=== PATIENT | male | born 1945 | race Caucasian/White ===

== ENCOUNTER 2020-10-25 14:59 | Inpatient (IN) | payer MEDICARE, BC ==
[~2020-10-25] VITALS: Ht 198.1 cm; Wt 112.0 kg
--- NOTE | 2020-10-25 15:09 | NUR ---
[email or web address], from home, c/o left hip pain s/p tripped and fall, external rotation and shortening, fentanyl 100mcg given on scene, 2/10 pain scale, to ER bed 11, hooked to monitor, changed to hosp gown, warm blanket provided. patiangel luis noted w IVP 20g, patent. awaiting MD mcdonald
--- NOTE | 2020-10-25 15:14 | NUR ---
Dr Young at bedside
[2020-10-25 16:05] LABS: BASOPHILS % (AUTO) 0.1 % (0.0-2.0); EOSINOPHILS % (AUTO) 0.7 % (0.0-6.0); HEMATOCRIT 40 % (39-51); HEMOGLOBIN 13.6 g/dL (13.5-17.5); LYMPHOCYTES # (AUTO) 0.9 /CMM (0.8-4.8); LYMPHOCYTES % (AUTO) 11.7 % (20.0-44.0); MEAN CORPUSCULAR HGB CONC 34 g/dl (31.0-36.0); MEAN CORPUSCULAR VOLUME 91 fL (80-96); MONOCYTES # (AUTO) 0.5 /CMM (0.1-1.30); MONOCYTES % (AUTO) 5.8 % (2.0-12.0); NEUTROPHILS # (AUTO) 6.5 /CMM (1.8-8.9); NEUTROPHILS % (AUTO) 81.7 % (43.0-81.0); PLATELET COUNT (AUTO) 157 /CMM (150-450); RED BLOOD CELL COUNT(AUTO) 4.44 MIL/uL (4.5-6.0); WHITE BLOOD COUNT (AUTO) 7.9 K/uL (4.3-11.0)
[2020-10-25 16:18] LABS: CALCIUM, SERUM 8.8 mg/dL (8.5-10.1)
[2020-10-25] MEDS ORDERED: IV NS 0.9% 500 ML BAG IV ONE (17:00)
[2020-10-25] MEDS ORDERED: FENTANYL PF 100MCG/2ML AMPUL ONE (17:22)
[2020-10-25] MEDS ORDERED: FENTANYL PF 100MCG/2ML AMPUL IV ONE (17:30)
--- NOTE | 2020-10-25 17:43 | NUR ---
PICKED UP BY PEN TENDER FOR CT SCAN
--- NOTE | 2020-10-25 18:14 | NUR ---
BACK FROM CT SCAN
[2020-10-25] MEDS ORDERED: LEVO175T7 PO (18:30)
[2020-10-25] MEDS ORDERED: TADA5TAB2 PO (18:30)
[2020-10-25] MEDS ORDERED: ATOR10TA PO (18:30)
[2020-10-25] MEDS ORDERED: TAMS-12 PO (18:30)
[2020-10-25] MEDS ORDERED: NAPR220C15 PO (18:30)
[2020-10-25] MEDS ORDERED: OMEP20CA15 PO (18:30)
[2020-10-25] MEDS ORDERED: ASPI-1169 PO (18:30)
[2020-10-25] MEDS ORDERED: MAGN400T26 PO (18:31)
[2020-10-25] MEDS ORDERED: CALC500T52 PO (18:31)
--- NOTE | 2020-10-25 18:52 | NUR ---
CALLED NURSING SUP FOR M/S BED.
--- NOTE | 2020-10-25 19:23 | NUR ---
SARAID SWABBED, SENT TO LAB.
[2020-10-25] MEDS ORDERED: MAGNESIUM HYDROXIDE 30 ML UDC PO PRN (19:30)
[2020-10-25] MEDS ORDERED: ACETAMINOPHEN 325 MG TABLET PO PRN (19:30)
[2020-10-25] MEDS ORDERED: diphenhydrAMINE HCL 50 MG/ML VIAL IV PRN (19:30)
[2020-10-25] MEDS ORDERED: ONDANSETRON HCL/PF 4 MG/2 ML VIAL IVP PRN (19:30)
[2020-10-25] MEDS ORDERED: Z GUARD REMEDY 2 OZ OINT TP PRN (19:30)
[2020-10-25] MEDS ORDERED: MAG HYDROX/AL HYDROX/SIMETH 30 ML UDC PO PRN (19:30)
--- NOTE | 2020-10-25 19:53 | NUR ---
REPORT GIVEN TO HELEN HILL FOR PHILIPPE
--- NOTE | 2020-10-25 20:17 | NUR ---
LAB CALLED REGARDING POSITIVE COVID RESULT.
[2020-10-25] MEDS ORDERED: TAMSULOSIN 0.4 MG CAP.SR.24H PO SCH (22:00)
--- NOTE | 2020-10-25 23:47 | NUR ---
PT RESTING COMFORTABLY. VSS.
--- NOTE | 2020-10-26 00:31 | NUR ---
REPORT GIVEN TO BENITA FOR PHILIPPE
[2020-10-26 01:00] VITALS: BP_SYST 154; BP_DIAS 80; BP_DIAS 84
[2020-10-26] MEDS: HYDROMORPHONE INJ 2 MG/ML DISP.SYRIN IV PRN ×5 (01:07→22:21)
--- NOTE | 2020-10-26 01:25 | NUR ---
MS/RN ADMITTING NOTES: RECEIVED REPORT FROM SERGIO MARTINEZ FROM ER. PT ARRIVED TO UNIT AT 0100, IN STABLE CONDITION, VIA GURNEY. ON ROOM AIR, TOLERATING WELL. NO SOB NOTED. BREATHING EVEN AND UNLABORED. NO S/S OF DISTRESS. COMPLAINS OF PAIN 10 OUT OF 10. REQUESTING FOR PAIN MED BEFORE GETTING TRANSFERRED TO THE BED. PT STATED HE IS ALLERGIC TO MORPHINE AND HAS REACTION OF REDNESS AND ITCHING. PER PT "I THINK I'VE GOTTEN DILAUDID BEFORE IN THE PAST." CALLED [facility] TO CLARIFY IF IT'S OKAY TO ADMINISTER DILAUDID IV ORDERED. PER ERINN (PHARMACIST) "OKAY TO GIVE. JUST MONITOR PT." ADMINISTERED DILAUDID 2MG IVP Q4H PRN AT 0107 ORDERED FOR PAIN. VSS AND WNL. WILL ASSESS FOR REACTIONS AND PAIN. AT 0122, PT ALLOWED TO BE TRANSFERRED ON THE BED. CAN TOLERATE PAIN. NO REACTIONS FROM THE DILAUDID. VSS AND WNL. PT IS A/OX4. VERBALLY RESPONSIVE AND ABLE TO MAKE NEEDS KNOWN. ORIENTED TO UNIT AND STAFF. BELONGINGS LIST CHECKED. SAFETY MEASURES INITIATED. BED IN LOW, LOCKED POSITION WITH SR UPX2. PT HAS NO VISIBLE WOUNDS. WOULD NOT ALLOW US TO MOVE HIM BECAUSE OF HIS HIP FRACTURE. REFUSES TO CHANGE GOWN. REFUSES SKIN ASSESSMENT D/T PAIN. INFORMED ABOUT HOSPITAL PROTOCOL, AND EDUCATED, STILL REFUSED X3. CALL LIGHT WITHIN REACH, NO OTHER ISSUES AND CONCERNS AT THIS TIME.
--- NOTE | 2020-10-26 01:30 | NUR ---
MS/RN NOTES: PT IS COOPERATIVE AND CALM WHEN ASKED QS ON THE ADMISSION, BUT STILL REFUSES TO BE CHANGED. URINAL AT BED SIDE. PER PT "I DON'T WANT TO BE BOTHERED". WILL MANAGED PAIN NEEDED. NO ISSUES AND CONCERN NOTED AT THIS TIME.
[2020-10-26] MEDS: TAMSULOSIN 0.4 MG CAP.SR.24H PO SCH ×2 (01:53→21:14)
[2020-10-26 05:40] VITALS: BP 142/78
--- NOTE | 2020-10-26 06:00 | NUR ---
MS/RN NOTES: PT REQUESTED FOR PAIN MED. PAIN RATING IS 9/10. ADMINISTERED DILAUDID 2MG IV IVP ORDERED. VSS AND WNL. NO CONCERNS OR ISSUES AT THIS TIME.
--- NOTE | 2020-10-26 06:15 | NUR ---
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 SOLAR TECHNICIAN INFORMED. DR. ENGLISH MADE AWARE.
--- NOTE | 2020-10-26 07:13 | NUR ---
MS/RN CLOSING NOTES: PT REMAINS A/OX4. VERBALLY RESPONSIVE AND ABLE TO MAKE NEEDS KNOWN. SAFETY MEASURES KEPT IN PLACE. BED IN LOW, LOCKED POSITION WITH SR UPX2. REFUSES TO CHANGE GOWN. REFUSES SKIN ASSESSMENT D/T PAIN. SAFETY MEASURES KEPT IN PLACE. BED IN LOW, LOCKED POSITION WITH SR UPX2. CALL LIGHT WITHIN REACH, NO OTHER ISSUES AND CONCERNS AT THIS TIME. WILL ENDORSE TO DAY SHIFT FOR PHILIPPE.
[2020-10-26] MEDS ORDERED: OMEPRAZOLE 20 MG CAPSULE.DR PO SCH (07:30)
--- NOTE | 2020-10-26 07:30 | NUR ---
MS/RN NOTES: SURGERY CALLED ASKING IF PT. IS NPO, AND CLEARED BY CARDIAC FOR SURGERY BECAUSE DR. JUAREZ WANTS TO DO THE SURGERY TODAY. INFORMED SURGERY THAT PT. HASN'T BEEN NPO SINCE DIET ORDER WAS SET TO REGULAR, AND HASN'T BEEN SEEN BY CARDIO. DERICK RN CHRISTIANO AWARE AND WILL HOLD BREAKFAST.
--- NOTE | 2020-10-26 07:38 | NUR ---
MS/RN OPENING NOTES RECEIVED PATIENT ON BED AWAKE ALERT AND ORIENTED X 4. PATIENT IN NO APPARENT RESPIRATORY DISTRESS NOTED. NO COMPLAINED OF PAIN NOTED AT THIS TIME. WILL CONTINUE TO MONITOR.
[2020-10-26 08:00] VITALS: BP 138/67
[2020-10-26 08:23] LABS: BASOPHILS % (AUTO) 0.2 % (0.0-2.0); HEMATOCRIT 37 % (39-51); HEMOGLOBIN 12.7 g/dL (13.5-17.5); LYMPHOCYTES % (AUTO) 15.3 % (20.0-44.0); MEAN CORPUSCULAR HGB CONC 34 g/dl (31.0-36.0); MEAN CORPUSCULAR VOLUME 91 fL (80-96); MONOCYTES # (AUTO) 0.6 /CMM (0.1-1.30); MONOCYTES % (AUTO) 9.5 % (2.0-12.0); NEUTROPHILS # (AUTO) 4.8 /CMM (1.8-8.9); PLATELET COUNT (AUTO) 139 /CMM (150-450); RED BLOOD CELL COUNT(AUTO) 4.08 MIL/uL (4.5-6.0); WHITE BLOOD COUNT (AUTO) 6.6 K/uL (4.3-11.0)
[2020-10-26 08:26] LABS: CALCIUM, SERUM 7.9 mg/dL (8.5-10.1); CREATININE 0.9 mg/dL (0.6-1.3); MAGNESIUM 2.1 mg/dL (1.8-2.4); PHOSPHORUS 3.9 mg/dL (2.5-4.9); POTASSIUM 3.9 mmol/L (3.5-5.1)
[2020-10-26] MEDS: PANTOPRAZOLE 40 MG TABLET.DR PO SCH (09:54)
[2020-10-26] MEDS: CALCIUM CARBONATE (1250) 500 MG TABLET PO SCH (09:54)
[2020-10-26] MEDS: LEVOTHYROXINE SODIUM 175 MCG TABLET PO SCH (09:54)
[2020-10-26] MEDS: MAGNESIUM OXIDE 400 MG TABLET PO SCH (09:55)
--- NOTE | 2020-10-26 13:41 | NUR ---
TELE/RN NOTES DR. VELÁZQUEZ ORDER NPO UNTIL SEEN BY SURGEON. NOTED AND CARRIED OUT.
[2020-10-26] MEDS: IV NS 0.9% 1,000 ML IV PRN (14:28)
--- NOTE | 2020-10-26 15:56 | NUR ---
TELE/RN NOTES DR JUAREZ ORDER NPO POST MIDNIGHT. NOTED AND CARRIED OUT.
[2020-10-26 16:00] VITALS: BP 156/74
[2020-10-26] MEDS: ATORVASTATIN 10 MG TABLET PO SCH (17:37)
--- NOTE | 2020-10-26 20:44 | NUR ---
MS/RN CLOSING NOTES: PATIENT IS ON BED A/OX4. VERBALLY RESPONSIVE AND ABLE TO MAKE NEEDS KNOWN. SAFETY MEASURES KEPT IN PLACE. BED IN LOW, LOCKED POSITION WITH SR UPX2. REFUSES TO CHANGE GOWN. REFUSES SKIN ASSESSMENT D/T PAIN. SAFETY MEASURES KEPT IN PLACE. BED IN LOW, LOCKED POSITION WITH SR UPX2. CALL LIGHT WITHIN REACH, WILL ENDORSE TO DRILL RIG OPERATOR HELPER FOR PHILIPPE.
--- NOTE | 2020-10-26 20:45 | NUR ---
MS RN NOTE: PATIENT RESTING IN BED, NO ACUTE DISTRESS NOTED. BREATHING EVEN AND UNLABORED, NO SOB NOTED. IV TO LEFT HAND IN PLACE. PATIENT EXPRESSED THAT HE DOES NOT WANT SURGERY FROM DR. JUAREZ, SINCE HE DID NOT SEE OR SPEAK TO THE DOCTOR. TRIED TO EXPLAIN THAT DUE TO CURRENT COVID SITUATION IT IS HARDER TO DO IN PERSON CONSULT. PATIENT REQUESTING TO HAVE SURGERY FROM DR. EUBANKS OR CARO. WILL INFORM DR. JUAREZ.
--- NOTE | 2020-10-26 23:00 | NUR ---
MS RN NOTE: RECEIVED CALL BACK FROM DR. JUAREZ AND INFORMED THAT PATIENT REFUSES TO HAVE SURGERY UNLESS SEEN BY MD AND THAT HE WANTS TO HAVE SURGERY FROM DR. EUBANKS OR DR. ELIZONDO. SURGERY ON HOLD AT THIS TIME. NURSING DENTAL INSTRUMENT MAKER INFORMED AND WILL CONTACT SURGICAL TEAM. WILL CONTINUE TO MONITOR.
[2020-10-27 01:34] LABS: BILIRUBIN,URINE NEGATIVE (NEGATIVE); BLOOD, URINE MODERATE Ery/uL (NEGATIVE); COLOR,URINE YELLOW (YELLOW); LEUKOCYTE ESTERASE ,URINE NEGATIVE (NEGATIVE); NITRITE, URINE NEGATIVE (NEGATIVE); PROTEIN,URINE NEGATIVE (NEGATIVE); UGLUCOSE NEGATIVE (NEGATIVE); UROBILINOGEN,URINE 0.2 EU/dL (0.2)
[2020-10-27 01:42] LABS: BACTERIA,URINE None seen /HPF (None Seen); SQUAMOUS EPITHELIAL CELL,UR Rare /HPF (None Seen)
[2020-10-27 01:43] LABS: URINE AMORPHOUS URATE Few /HPF (None Seen)
[2020-10-27] MEDS: HYDROMORPHONE INJ 2 MG/ML DISP.SYRIN IV PRN ×5 (02:43→23:01)
--- NOTE | 2020-10-27 07:00 | NUR ---
MS RN NOTE: PATIENT RESTING IN BED, NO ACUTE DISTRESS NOTED. BREATHING EVEN AND UNLABORED, NO SOB NOTED. IV TO LEFT HAND IN PLACE. BED LOCKED AND IN LOWEST POSITION, CALL LIGHT IN REACH. WILL ENDORSE TO DAY NURSE TO CONTINUE WITH PLAN OF CARE.
--- NOTE | 2020-10-27 07:32 | NUR ---
RN NOTES RECEIVED PATIENT IN BED ALERT AND AWAKE ORIENTED X4. HOB ELEVATED. ON ROOM AIR WITH NO SOB OBSERVED. LEFT AC SL # 20 INTACT AND PATENT. BED IN LOWEST POSITION ,LOCKED. BED ALARM ON. CALL LIGHT WITHIN REACH. ABLE TO VERBALIZE NEEDS.
[2020-10-27 08:00] VITALS: BP 157/70
--- NOTE | 2020-10-27 08:00 | NUR ---
RN NOTES PATIENT SEEN AND EXAMINED BY DR. JUAREZ AND DISCUSSED SURGERY. PATIENT AGREED TO HAVE SURGERY IN AM.
[2020-10-27] MEDS: MAGNESIUM OXIDE 400 MG TABLET PO SCH (08:17)
[2020-10-27] MEDS: CALCIUM CARBONATE (1250) 500 MG TABLET PO SCH (08:17)
[2020-10-27] MEDS: PANTOPRAZOLE 40 MG TABLET.DR PO SCH (08:17)
[2020-10-27] MEDS: LEVOTHYROXINE SODIUM 175 MCG TABLET PO SCH (08:17)
[2020-10-27] MEDS ORDERED: CLONIDINE HCL 0.1 MG TABLET PO PRN (12:00)
[2020-10-27] MEDS: HYDROCODONE/APAP 5/325MG TABLET PO PRN (15:01)
[2020-10-27 17:00] VITALS: BP 148/71
[2020-10-27] MEDS: ATORVASTATIN 10 MG TABLET PO SCH (18:25)
[2020-10-27] MEDS: IV NS 0.9% 1,000 ML IV PRN (18:30)
[2020-10-27 19:08] LABS: BASOPHILS % (AUTO) 0.3 % (0.0-2.0); EOSINOPHILS % (AUTO) 2.3 % (0.0-6.0); HEMATOCRIT 38 % (39-51); HEMOGLOBIN 12.9 g/dL (13.5-17.5); LYMPHOCYTES % (AUTO) 13.2 % (20.0-44.0); MEAN CORPUSCULAR HGB CONC 34 g/dl (31.0-36.0); MEAN CORPUSCULAR VOLUME 90 fL (80-96); MONOCYTES # (AUTO) 0.9 /CMM (0.1-1.30); MONOCYTES % (AUTO) 11.6 % (2.0-12.0); NEUTROPHILS # (AUTO) 5.6 /CMM (1.8-8.9); NEUTROPHILS % (AUTO) 72.6 % (43.0-81.0); PLATELET COUNT (AUTO) 144 /CMM (150-450); RED BLOOD CELL COUNT(AUTO) 4.17 MIL/uL (4.5-6.0); WHITE BLOOD COUNT (AUTO) 7.7 K/uL (4.3-11.0)
[2020-10-27 19:24] LABS: CALCIUM, SERUM 8.4 mg/dL (8.5-10.1); CARBON DIOXIDE 27 mmol/L (21-32); CHLORIDE 105 mmol/L (98-107); CREATININE 0.9 mg/dL (0.6-1.3); GLUCOSE 111 mg/dL (74-106); SODIUM SERUM 141 mmol/L (136-145); UREA NITROGEN, BLOOD 24 mg/dL (7-18)
[2020-10-27 19:30] LABS: ALANINE AMINOTRANSFERASE 30 U/L (12-78); ALBUMIN 3.3 g/dL (3.4-5.0); ALKALINE PHOSPHATASE 79 U/L (46-116); ASPARTATE AMINOTRANSFERASE 23 U/L (15-37); BILIRUBIN,TOTAL 1.1 mg/dL (0.2-1.0); TOTAL PROTEIN, SERUM 5.8 g/dL (6.4-8.2)
--- NOTE | 2020-10-27 19:40 | NUR ---
RN NOTES PATIENT RESTING COMFORTABLY IN BED. HOB ELEVATED. REMAIN ON ROOM AIR WITH NO S/S OF RESPIRATORY DISTRESS THROUGH OUT THE SHIFT. PATIENT REFUSED TO HAVE LINENS CHANGED AND REMOVED AND STATED HE WOULD RATHER DO IT TOMORROW. LEFT AC SL # 20 INTACT AND PATENT. BED IN LOWEST POSITION ,LOCKED. BED ALARM ON. CALL LIGHT WITHIN REACH. ABLE TO VERBALIZE NEEDS. IN NO APPARENT DISTRESS.
[2020-10-27 20:00] VITALS: BP 143/76
--- NOTE | 2020-10-27 20:45 | NUR ---
MS RN NOTE: PATIENT RESTING IN BED, NO ACUTE DISTRESS NOTED. BREATHING EVEN AND UNLABORED, NO SOB NOTED. IV TO LEFT HAND IN PLACE. PATIENT TO BE NPO AT MIDNIGHT AND FOR SURGERY IN MORNING AT 1000. CHECKLIST IN CHART, CONSENT SIGNED EXCEPT FOR ANESTHESIA, WANTS TO SPEAK TO MD ABOUT WHAT ANESTHESIA WILL BE USED BEFORE SIGNING PAPERWORK. ISOLATION PRECAUTIONS OBSERVED. BED LOCKED AND IN LOWEST POSITION, CALL LIGHT IN REACH. WILL CONTINUE TO MONITOR.
[2020-10-27] MEDS: TAMSULOSIN 0.4 MG CAP.SR.24H PO SCH (21:48)
--- NOTE | 2020-10-28 | NUR ---
MS RN NOTE: PATIENT NPO FOR SURGERY IN MORNING FOR LEFT HIP IM RODDING. PATIENT INFORMED NOT TO EAT OR DRINK ANYTHING. WILL CONTINUE TO MONITOR.
[2020-10-28] MEDS: HYDROMORPHONE INJ 2 MG/ML DISP.SYRIN IV PRN ×2 (06:34→23:32)
--- NOTE | 2020-10-28 06:45 | NUR ---
MS RN NOTE: PATIENT RESTING IN BED, NO ACUTE DISTRESS NOTED. BREATHING EVEN AND UNLABORED, NO SOB NOTED. IV TO LEFT HAND IN PLACE. PATIENT NPO SINCE MIDNIGHT AND FOR SURGERY THIS MORNING AT 1000. CONSENT SIGNED AND CHECKLIST IN CHART. ISOLATION PRECAUTIONS OBSERVED. BED LOCKED AND IN LOWEST POSITION, CALL LIGHT IN REACH. WILL ENDORSE TO DAY NURSE TO CONTINUE WITH PLAN OF CARE.
--- NOTE | 2020-10-28 07:30 | NUR ---
PT RECEIVED RESTING COMFORTABLY IN BED. NO S/S OR C/O PAIN OR DISTRESS NOTED. SIDE RAILS UP X2, CALL LIGHT LEFT WITHIN REACH. WILL CONTINUE PLAN OF CARE.
[2020-10-28 08:00] VITALS: BP 159/83
[2020-10-28] MEDS ORDERED: BUPIVACAINE 0.5 % PF 150 MG/30 ML VIAL ONE (09:31)
[2020-10-28] MEDS ORDERED: BACITRACIN 50000 UNITS/VIAL ONE (09:32)
[2020-10-28] MEDS ORDERED: HYDROMORPHONE INJ 2 MG/ML DISP.SYRIN ONE (10:07)
[2020-10-28] MEDS ORDERED: ROCURONIUM BROMIDE 50 MG/5 ML ONE (10:07)
[2020-10-28] MEDS ORDERED: HYDROMORPHONE 1 MG/1 ML DISP.SYRIN ONE (12:36)
[2020-10-28] MEDS: CALCIUM CARBONATE (1250) 500 MG TABLET PO SCH (13:53)
[2020-10-28] MEDS: LEVOTHYROXINE SODIUM 175 MCG TABLET PO SCH (13:53)
[2020-10-28] MEDS: MAGNESIUM OXIDE 400 MG TABLET PO SCH (13:53)
[2020-10-28] MEDS: PANTOPRAZOLE 40 MG TABLET.DR PO SCH (13:53)
[2020-10-28] MEDS: HYDROCODONE/APAP 10/325MG TABLET PO PRN (14:33)
[2020-10-28] MEDS: IV PREMIX D5 1/2NS + KCL 1,000 ML IV PRN (17:43)
[2020-10-28] MEDS: ATORVASTATIN 10 MG TABLET PO SCH (17:43)
[2020-10-28] MEDS: HYDROCODONE/APAP 5/325MG TABLET PO PRN (17:43)
[2020-10-28] MEDS: ANCEF 1 GM/50 ML D5W IV SCH ×2 (18:08)
--- NOTE | 2020-10-28 19:38 | NUR ---
MS RN OPENING NOTES PATIENT AWAKE IN BED. A/OX4. ON RA; NO S/S OF ACUTE RESPIRATORY DISTRESS; BREATHING IS EVEN AND UNLABORED. NO C/O AT THIS TIME. SURGICAL DRESSING ON LEFT HIP DRY AND INTACT; LEFT LEG ELEVATED ON PILLOW. IV PRESENT ON LEFT HAND, SIZE 20, INTACT & PATENT, HEP LOCKED. IV PRESENT ON RIGHT HAND, SIZE 20, INTACT & PATENT WITH D5 1/2 NS WITH 20 SHAKILA KCL RUNNING AT 100 ML/HR. CONTACT/DROPLET PRECAUTIONS IN PLACE FOR POSITIVE COVID 19. SAFETY MEASURES IN PLACE AND PATIENT'S NEEDS MET. BED LOCKED, SIDE RAILS X2, CALL LIGHT WITHIN REACH. WILL CONTINUE TO MONITOR.
[2020-10-28 20:00] VITALS: BP 138/59
--- NOTE | 2020-10-28 20:07 | NUR ---
MS RN CLOSING NOTES PATIENT RESTING COMFORTABLY. AAOX4; ABLE TO MAKE NEEDS KNOWN. ON ROOM AIR, TOLERATING WELL. S/P SURGERY FOR IM RODDING L HIP. BANDAGES TO L HIP AND MID LEG; INTACT, DRY, AND KEPT CLEAN. BED IN LOWEST POSITION ,LOCKED, SIDE RAILS UPX2. BED ALARM ON. CALL LIGHT WITHIN REACH. ENDORSED PLAN OF CARE TO ONCOMING NURSE.
--- NOTE | 2020-10-28 20:46 | NUR ---
MS RN NOTES PATIENT C/O LEFT HIP PAIN; REFUSING PRN NORCO AND IS REQUESTING IV PAIN MEDICATION. CALLED DR. JUAREZ'S OFFICE ; AWAITING CALL BACK.
--- NOTE | 2020-10-28 21:10 | NUR ---
MS RN NOTE CALLED DR. JUAREZ'S OFFICE ; AWAITING CALL BACK.
[2020-10-28] MEDS: TAMSULOSIN 0.4 MG CAP.SR.24H PO SCH (21:39)
--- NOTE | 2020-10-28 22:40 | NUR ---
MS RN NOTE NOTIFIED MEDICAL TECHNOLOGIST HEMATOLOGY YOUNG MARES, PATIENT IS REFUSING PRN NORCO PO AT THIS TIME AND IS REQUESTING IV PAIN MEDICATION FOR LEFT HIP PAIN R/T SURGERY. RECEIVED ORDERS FOR TORADOL 30 MG IV PRN Q6H. ORDERS RECEIVED AND CARRIED OUT.
[2020-10-28] MEDS ORDERED: KETOROLAC TROMETHAMINE INJ 30 MG/ML VIAL IV PRN (23:00)
--- NOTE | 2020-10-28 23:17 | NUR ---
MS RN NOTE RECEIVED CALL FROM DR. JUAREZ; PER ERIC MAYNARD TO GIVE DILAUDID 2MG IV PRN Q4H. ORDERS RECEIVED AND CARRIED OUT.
--- NOTE | 2020-10-28 23:32 | NUR ---
MS RN NOTE ADMINISTERED PRN DILAUDID 2MG IV FOR LEFT HIP PAIN RATED 10/10. SAFETY MEASURES IN PLACE AND PATIENT'S NEEDS MET. WILL CONTINUE TO MONITOR.
[2020-10-29] MEDS: HYDROCODONE/APAP 5/325MG TABLET PO PRN ×2 (00:51→05:09)
[2020-10-29] MEDS: ANCEF 1 GM/50 ML D5W IV SCH ×2 (02:58)
[2020-10-29 03:44] VITALS: BP 131/60
[2020-10-29] MEDS: HYDROMORPHONE INJ 2 MG/ML DISP.SYRIN IV PRN ×4 (03:47→23:30)
[2020-10-29] MEDS: IV PREMIX D5 1/2NS + KCL 1,000 ML IV PRN ×2 (03:47→21:52)
[2020-10-29 07:27] LABS: BASOPHILS % (AUTO) 0.3 % (0.0-2.0); EOSINOPHILS % (AUTO) 2.9 % (0.0-6.0); HEMATOCRIT 31 % (39-51); HEMOGLOBIN 10.6 g/dL (13.5-17.5); LYMPHOCYTES % (AUTO) 14.1 % (20.0-44.0); MEAN CORPUSCULAR HGB CONC 35 g/dl (31.0-36.0); MEAN CORPUSCULAR VOLUME 91 fL (80-96); MONOCYTES # (AUTO) 0.8 /CMM (0.1-1.30); MONOCYTES % (AUTO) 11.8 % (2.0-12.0); NEUTROPHILS # (AUTO) 4.9 /CMM (1.8-8.9); NEUTROPHILS % (AUTO) 70.9 % (43.0-81.0); PLATELET COUNT (AUTO) 146 /CMM (150-450); RED BLOOD CELL COUNT(AUTO) 3.37 MIL/uL (4.5-6.0); WHITE BLOOD COUNT (AUTO) 6.9 K/uL (4.3-11.0)
[2020-10-29 07:43] LABS: CREATININE 0.8 mg/dL (0.6-1.3)
--- NOTE | 2020-10-29 07:45 | NUR ---
MS RN CLOSING NOTES PATIENT AWAKE IN BED. A/OX4. ON RA; NO S/S OF ACUTE RESPIRATORY DISTRESS; BREATHING IS EVEN AND UNLABORED. NO C/O AT THIS TIME. SURGICAL DRESSING ON LEFT HIP DRY AND INTACT. IV PRESENT ON LEFT HAND, SIZE 20, INTACT & PATENT D5 1/2 NS WITH 20 SHAKILA KCL RUNNING AT 100 ML/HR. SAFETY MEASURES IN PLACE AND PATIENT'S NEEDS MET. BED LOCKED, SIDE RAILS X2, CALL LIGHT WITHIN REACH. ENDORSED TO DAY SHIFT RN PLAN OF CARE.
[2020-10-29 08:00] VITALS: BP 129/57
--- NOTE | 2020-10-29 08:00 | NUR ---
RN NOTES PATIENT AWAKE IN BED. A/OX4. ON RA; NO S/S OF RESPIRATORY DISTRESS; BREATHING IS EVEN AND UNLABORED. NO C/O AT THIS TIME. SURGICAL DRESSING ON LEFT HIP DRY AND INTACT. IV PRESENT ON LEFT HAND, SIZE 20, INTACT & PATENT D5 1/2 NS WITH 20 SHAKILA KCL RUNNING AT 100 ML/HR. SAFETY MEASURES IN PLACE AND PATIENT'S NEEDS MET. BED LOCKED, SIDE RAILS X2, CALL LIGHT WITHIN REACH.
[2020-10-29 08:04] LABS: CALCIUM, SERUM 7.9 mg/dL (8.5-10.1)
[2020-10-29] MEDS: LEVOTHYROXINE SODIUM 175 MCG TABLET PO SCH (09:42)
[2020-10-29] MEDS: PANTOPRAZOLE 40 MG TABLET.DR PO SCH (09:42)
[2020-10-29] MEDS: CALCIUM CARBONATE (1250) 500 MG TABLET PO SCH (09:42)
[2020-10-29] MEDS: MAGNESIUM OXIDE 400 MG TABLET PO SCH (09:42)
[2020-10-29 12:00] VITALS: BP 125/62
[2020-10-29] MEDS: LISINOPRIL (10MG) 10 MG TABLET PO SCH (12:24)
--- NOTE | 2020-10-29 13:00 | NUR ---
PAGED DR JUAREZ SECOND TIME FOR PT'S REQUEST FOR BLOOD THINNER.
--- NOTE | 2020-10-29 13:18 | NUR ---
DR JUAREZ CALLED BACK WITH ORDER OF LOVENOX 30 MG SQ Q 12 HRS.
[2020-10-29] MEDS: ENOXAPARIN SODIUM 30 MG/0.3 ML DISP.SYRIN SQ SCH ×2 (15:18→21:42)
--- NOTE | 2020-10-29 15:30 | NUR ---
PT'S BOTH HEPLOCK SITES IN LT HAND AND RT HAND ARE BOTH INFILTRATED.NOTIFIED DR VELÁZQUEZ WITH ORDERS FOR MIDLINE INSERTION AND CARRIED OUT.NOTIFIED RN ENERGY AND CONSERVATION TECHNICIAN,CECILY WELL WHO CALLED THE MIDLINE NURSE.+ +
[2020-10-29 16:00] VITALS: BP 145/68
[2020-10-29] MEDS: ATORVASTATIN 10 MG TABLET PO SCH (18:01)
--- NOTE | 2020-10-29 18:12 | NUR ---
RN NOTES PATIENT AWAKE IN BED. A/OX4. ON RA; NO S/S OF RESPIRATORY DISTRESS; BREATHING IS EVEN AND UNLABORED. NO C/O AT THIS TIME. SURGICAL DRESSING ON LEFT HIP DRY AND INTACT. MIDLINE ON THE LEFT UPPER ARM INTACT & PATENT. SAFETY MEASURES IN PLACE AND PATIENT'S NEEDS MET. BED LOCKED, SIDE RAILS X2, CALL LIGHT WITHIN REACH. WILL ENDORSE CARE TO ON COMING NURSE
--- NOTE | 2020-10-29 21:00 | NUR ---
MS RN NOTES RECEIVED REPORT FROM TAMMIE HILL,PATIENT RESTING COMFORTABLY ON BED,S/P LEFT HIP IM RODDING BY DR JUAREZ,ALERT,ORIENTED X4,BREATHING REGULAR,NOT IN ANY FORM OF DISTRESS.WITH HYACINTH MIDLINE FOR MEDS,INFUSING IVF WITH 20 MEQ KCL.DRESSING TO SURGICAL SITE INTACT AND DRY.ISOLATION FOR RAPID TEST POSITIVE.CALL LIGHT IN REACH,NEEDS ANTICIPATED.
[2020-10-29 21:10] VITALS: BP 127/71
[2020-10-29] MEDS: TAMSULOSIN 0.4 MG CAP.SR.24H PO SCH (21:43)
[2020-10-29 22:00] VITALS: BP 127/71
--- NOTE | 2020-10-29 23:30 | NUR ---
MS RN NOTES PAIN MANAGEMENT C/O PAIN ON LEFT HIP 8/10 ON PAIN SCALE.DILAUDID 2MG IVP GIVEN ORDERED FOR SEVERE PAIN.
[2020-10-30] VITALS (8 sets, daily range): BP systolic 127–170; BP diastolic 64–78
--- NOTE | 2020-10-30 06:56 | NUR ---
MS RN NOTES FAIRLY RESTED THRU OUT SHIFT,PAIN MANAGEMENT EFFECTIVE,IVF INFUSING WELL ON HYACINTH MIDLINE.CALL LIGHT IN REACH,NEEDS ATTENDED.WILL ENDORSE TO DAY NURSE FOR PHILIPPE.
--- NOTE | 2020-10-30 08:10 | NUR ---
RN NOTES PATIENT AWAKE IN BED. A/OX4. ON RA; NO S/S OF RESPIRATORY DISTRESS; BREATHING IS EVEN AND UNLABORED. NO REPORTS OF PAIN AT HIS TIME.SURGICAL DRESSING ON LEFT HIP DRY AND INTACT. MIDLINE ON THE LEFT UPPER ARM INTACT & PATENT. SAFETY MEASURES IN PLACE AND PATIENT'S NEEDS MET. BED LOCKED, SIDE RAILS X2, CALL LIGHT WITHIN REACH. WILL CONTINUE TO MONITOR
[2020-10-30] MEDS: IV PREMIX D5 1/2NS + KCL 1,000 ML IV PRN ×2 (08:13→18:32)
[2020-10-30] MEDS: LISINOPRIL (10MG) 10 MG TABLET PO SCH (09:29)
[2020-10-30] MEDS: CALCIUM CARBONATE (1250) 500 MG TABLET PO SCH (09:29)
[2020-10-30] MEDS: MAGNESIUM OXIDE 400 MG TABLET PO SCH (09:29)
[2020-10-30] MEDS: ENOXAPARIN SODIUM 30 MG/0.3 ML DISP.SYRIN SQ SCH ×2 (09:30→21:23)
[2020-10-30] MEDS: LEVOTHYROXINE SODIUM 175 MCG TABLET PO SCH (09:31)
[2020-10-30] MEDS: PANTOPRAZOLE 40 MG TABLET.DR PO SCH (09:32)
[2020-10-30] MEDS: HYDROMORPHONE INJ 2 MG/ML DISP.SYRIN IV PRN ×3 (09:49→21:24)
[2020-10-30] MEDS: ATORVASTATIN 10 MG TABLET PO SCH (17:41)
--- NOTE | 2020-10-30 19:03 | NUR ---
RN NOTES PATIENT AWAKE IN BED. A/OX4. ON RA; NO S/S OF RESPIRATORY DISTRESS; BREATHING IS EVEN AND UNLABORED. NO REPORTS OF PAIN AT HIS TIME.SURGICAL DRESSING ON LEFT HIP DRY AND INTACT. MIDLINE ON THE LEFT UPPER ARM INTACT & PATENT. SAFETY MEASURES IN PLACE AND PATIENT'S NEEDS MET. BED LOCKED, SIDE RAILS X2, CALL LIGHT WITHIN REACH. WILL ENDORSE CARE TO UPCOMING NURSE
--- NOTE | 2020-10-30 19:50 | NUR ---
MS RN NOTE: PATIENT RESTING IN BED, NO ACUTE DISTRESS NOTED. BREATHING EVEN AND UNLABORED, NO SOB NOTED. MIDLINE TO HYACINTH IN PLACE, INFUSING D5 1/2 NS WITH 20 MEQ KCL AT 100ML/HR. ISOLATION PRECAUTIONS OBSERVED. BED LOCKED AND IN LOWEST POSITION, CALL LIGHT IN REACH.
[2020-10-30] MEDS: TAMSULOSIN 0.4 MG CAP.SR.24H PO SCH (21:24)
--- NOTE | 2020-10-30 21:30 | NUR ---
MS RN NOTE: PATIENT COMPLAINS OF PAIN TO LEFT HIP 07/23, DILAUDID 2MG IV GIVEN PER MD ORDER. WILL CONTINUE TO MONITOR.
[2020-10-31] MEDS: HYDROCODONE/APAP 5/325MG TABLET PO PRN ×2 (00:04→18:29)
--- NOTE | 2020-10-31 00:05 | NUR ---
MS RN NOTE: PATIENT COMPLAINS OF PAIN TO LEFT HIP 05/22, NORCO 5/325MG 1 TAB ORAL GIVEN PER MD ORDER. WILL CONTINUE TO MONITOR.
[2020-10-31] MEDS: HYDROCODONE/APAP 10/325MG TABLET PO PRN ×2 (07:04→09:21)
--- NOTE | 2020-10-31 07:10 | NUR ---
MS RN NOTE: PATIENT RESTING IN BED, NO ACUTE DISTRESS NOTED. BREATHING EVEN AND UNLABORED, NO SOB NOTED. MIDLINE TO HYACINTH IN PLACE. ISOLATION PRECAUTIONS OBSERVED. PATIENT COMPLAINS OF PAIN TO LEFT HIP 8/10, NORCO 10/325MG 1 TAB ORAL GIVEN PER MD ORDER. ISOLATION PRECAUTION OBSERVED. BED LOCKED AND IN LOWEST POSITION, CALL LIGHT IN REACH. WILL ENDORSE TO DAY NURSE TO CONTINUE WITH PLAN OF CARE.
[2020-10-31 08:00] VITALS: BP 139/82
--- NOTE | 2020-10-31 08:00 | NUR ---
MS RN AM NOTES PATIENT RESTING IN BED, NO ACUTE DISTRESS NOTED. BREATHING EVEN AND UNLABORED, NO SOB NOTED. MIDLINE TO HYACINTH IN PLACE. DROPLET ISOLATION PRECAUTIONS OBSERVED. DENIES ANY DISCOMFORT AT THIS TIME AND WANTS PAIN MEDS PRIOR TO P.T. TX. BED LOCKED AND IN LOWEST POSITION, CALL LIGHT WITHIN REACH.
[2020-10-31] MEDS: CALCIUM CARBONATE (1250) 500 MG TABLET PO SCH (09:10)
[2020-10-31] MEDS: MAGNESIUM OXIDE 400 MG TABLET PO SCH (09:10)
[2020-10-31] MEDS: LISINOPRIL (20MG) 20 MG TABLET PO SCH (09:10)
[2020-10-31] MEDS: PANTOPRAZOLE 40 MG TABLET.DR PO SCH (09:12)
[2020-10-31] MEDS: LEVOTHYROXINE SODIUM 175 MCG TABLET PO SCH (09:12)
[2020-10-31] MEDS: ENOXAPARIN SODIUM 30 MG/0.3 ML DISP.SYRIN SQ SCH ×2 (09:13→21:06)
[2020-10-31] MEDS: DOCUSATE SODIUM 250 MG CAPSULE PO SCH ×2 (09:45→18:29)
[2020-10-31] MEDS: LACTULOSE 10 G/15 ML UDC (PYXIS) PO SCH ×2 (09:45→21:05)
[2020-10-31 12:00] VITALS: BP 159/71
[2020-10-31] MEDS: IV PREMIX D5 1/2NS + KCL 1,000 ML IV PRN (14:52)
[2020-10-31 16:00] VITALS: BP 152/64
[2020-10-31] MEDS: ATORVASTATIN 10 MG TABLET PO SCH (18:29)
--- NOTE | 2020-10-31 19:00 | NUR ---
RN NOTES PATIENT RESTING IN BED, NO ACUTE DISTRESS NOTED. BREATHING EVEN AND UNLABORED, NO SOB NOTED. MIDLINE TO HYACINTH IN PLACE. DROPLET ISOLATION PRECAUTIONS OBSERVED. DENIES ANY DISCOMFORT AT THIS TIME AND WANTS PAIN MEDS PRIOR TO P.T. TX. BED LOCKED AND IN LOWEST POSITION, CALL LIGHT WITHIN REACH.
--- NOTE | 2020-10-31 19:30 | NUR ---
RN OPENING NOTES Pt on bed, on RA, saturating well. Pt denies any discomfort at this time. Kept on bed clean, dry and comfortable. On fall and aspiration precautions. Will continue to monitor accordingly.
[2020-10-31 20:00] VITALS: BP 158/72
[2020-10-31] MEDS: TAMSULOSIN 0.4 MG CAP.SR.24H PO SCH (21:05)
[2020-11-01] MEDS: IV PREMIX D5 1/2NS + KCL 1,000 ML IV PRN ×3 (00:31→22:49)
[2020-11-01] MEDS: HYDROCODONE/APAP 10/325MG TABLET PO PRN ×4 (01:21→20:31)
--- NOTE | 2020-11-01 02:18 | NUR ---
RECEIVED PATIENT IN BED,ASLEEP. NO S/S OF DISTRESS NOTED. ON RA. CALL LIGHT WITHIN REACH. BED IN LOWEST AND LOCKED.
--- NOTE | 2020-11-01 02:18 | NUR ---
REPORTS RECEIVED FROM SERGIO ATKINS FOR CONTINUITY OF CARE.
--- NOTE | 2020-11-01 06:45 | NUR ---
MS RN CLOSING NOTES: PATIENT IN BED, AWAKE. A/O X4. NO S/S OF DISTRESS NOTED. CALL LIGHT WITHIN REACH. BED IN LOWEST AND LOCKED POSITION. RESTED THROUGHOUT THE NIGHT.
--- NOTE | 2020-11-01 07:30 | NUR ---
M/S RN OPENING NOTES RECEIVED PT ON BED, AAOX4, RESPONSIVE TO ALL STIMULI. NO PRESENCE OF ACUTE RESPIRATORY DISTRESS. ABD SOFT AND NON DISTENDED WITH ACTIVE BOWEL SOUNDS. PAIN AT LEFT HIP 3/10, TOLERABLE PER PT. SKIN WARM TO TOUCH AND DRY.HYACINTH MIDLINE RUNNING D51/2 NS + 20 MEQ KCL @ 100 ML/HR. PATENT IN FLUSHING, NO S/SX OF INFILTRATION. COVID19 POSITIVE, PPE UTILIZED PER HOSPITAL PROTOCOL. BED IN LOW LOCKED POSITION, SRX2 FOR SAFETY, CALL LIGHT WITHIN REACH. WILL CONT TO MONITOR CARE.
[2020-11-01] MEDS: PANTOPRAZOLE 40 MG TABLET.DR PO SCH (07:33)
[2020-11-01] MEDS: LEVOTHYROXINE SODIUM 175 MCG TABLET PO SCH (07:33)
[2020-11-01 08:00] VITALS: BP 141/64
--- NOTE | 2020-11-01 08:36 | NUR ---
M/S RN NOTES RECEIVED NEW ORDER FROM DR. VELÁZQUEZ, MAGNESIUM CITRATE 1 BOTTLE QD PRN FOR CONSTIPATION. ORDER READ BACK. NOTED AND CARRIED OUT. PT AWARE
[2020-11-01] MEDS ORDERED: MAGNESIUM CITRATE 296 ML BOTTLE PO PRN (09:00)
[2020-11-01] MEDS: CALCIUM CARBONATE (1250) 500 MG TABLET PO SCH (09:30)
[2020-11-01] MEDS: DOCUSATE SODIUM 250 MG CAPSULE PO SCH ×2 (09:30→17:02)
[2020-11-01] MEDS: MAGNESIUM OXIDE 400 MG TABLET PO SCH (09:30)
[2020-11-01] MEDS: LACTULOSE 10 G/15 ML UDC (PYXIS) PO SCH ×2 (09:30→20:31)
[2020-11-01] MEDS: ENOXAPARIN SODIUM 30 MG/0.3 ML DISP.SYRIN SQ SCH ×2 (09:37→20:31)
[2020-11-01] MEDS: LISINOPRIL (20MG) 20 MG TABLET PO SCH (09:38)
[2020-11-01 16:00] VITALS: BP 148/81
[2020-11-01] MEDS: ATORVASTATIN 10 MG TABLET PO SCH (17:02)
--- NOTE | 2020-11-01 19:09 | NUR ---
M/S RN CLOSING NOTES PT AAOX4. TOLERATING RA @ 98%. ENDORSED FLEET ENEMA DUE TO NO BM X7 DAYS PT REQUESTED. DENIES PAIN AND DISCOMFORT. NO NEW SKIN BREAKDOWN. IV SITE AT HYACINTH MIDLINE RUNNING D51/2 NS + 20 MEQ KCL @100 ML/HR. SITE WITH NO S/SX OF INFILTRATION. COVID+ WITH PPE UTILIZED PROPERLY. ALL CARE ATTENDED. ENDORSED CARE TO NEXT SHIFT.
--- NOTE | 2020-11-01 19:45 | NUR ---
MS RN NOTES PATIENT IN BED, AWAKE, ALERT AND ORIENTED X 4. BREATHING EVEN AND UNLABORED ON ROOM AIR. SHOWS NO SIGNS OF ACUTE RESPIRATORY DISTRESS. NO ACUTE PAIN. IV ON HYACINTH MIDLINE RUNNING D5 1/2 NS AT KCL 20MEQ AT 100ML/HR. SHOWS NO SIGNS OF INFILTRATION, NO REDNESS. SAFETY PRECAUTIONS IN PLACE. BED IN LOWEST POSITION, LOCKED, AND CALL LIGHT KEPT WITHIN REACH. WILL CONTINUE TO MONITOR.
[2020-11-01 20:00] VITALS: BP_SYST 145; BP_SYST 151; BP_DIAS 79; BP_DIAS 89
--- NOTE | 2020-11-01 20:31 | NUR ---
MS RN NOTES PATIENT COMPLAINING OF PAIN 04/22. GIVEN PRN NORCO. VITAL SIGNS WNL. WILL CONTINUE TO MONITOR
[2020-11-01] MEDS: TAMSULOSIN 0.4 MG CAP.SR.24H PO SCH (21:17)
[2020-11-01] MEDS ORDERED: NA PHOS,M-B/NA PHOS,DI-BA 1 EA ENEMA RC PRN (21:30)
[2020-11-02] MEDS: HYDROCODONE/APAP 10/325MG TABLET PO PRN ×2 (00:31→20:42)
--- NOTE | 2020-11-02 00:31 | NUR ---
MS RN NOTES PATIENT COMPLAINING OF PAIN 06/22. GIVEN PRN NORCO. VITAL SIGNS WNL. WILL CONTINUE TO MONITOR
--- NOTE | 2020-11-02 06:35 | NUR ---
MS RN NOTES PATIENT IN BED, ASLEEP, ALERT AND ORIENTED X 4. BREATHING EVEN AND UNLABORED ON ROOM AIR. SHOWS NO SIGNS OF ACUTE RESPIRATORY DISTRESS. NO ACUTE PAIN. IV ON HYACINTH MIDLINE RUNNING D5 1/2 NS AT KCL 20MEQ AT 100ML/HR. SHOWS NO SIGNS OF INFILTRATION, NO REDNESS. ALL DUE MEDICATIONS GIVEN. SAFETY PRECAUTIONS IN PLACE. BED IN LOWEST POSITION, LOCKED, AND CALL LIGHT KEPT WITHIN REACH. WILL ENDORSE TO ONCOMING NURSE.
--- NOTE | 2020-11-02 07:30 | NUR ---
MS RN NOTES PATIENT IN BED, AWAKE, ALERT AND ORIENTED X 4. WITH BREATHING EVEN AND UNLABORED ON ROOM AIR. SHOWS NO SIGNS OF ACUTE RESPIRATORY DISTRESS AT THIS TIME. PATIENT PRESENTING WITH NO PAIN AT THIS TIME. IV ON HYACINTH MIDLINE RUNNING D5 1/2 NS AT KCL 20MEQ AT 100ML/HR. SAFETY PRECAUTIONS IN PLACE WITH BED IN LOWEST POSITION, BED LOCKED, BED ALARM ON AND CALL LIGHT KEPT WITHIN REACH. WILL CONTINUE TO MONITOR.
[2020-11-02 08:00] VITALS: BP 158/78
[2020-11-02] MEDS: CALCIUM CARBONATE (1250) 500 MG TABLET PO SCH (08:49)
[2020-11-02] MEDS: LEVOTHYROXINE SODIUM 175 MCG TABLET PO SCH (08:49)
[2020-11-02] MEDS: MAGNESIUM OXIDE 400 MG TABLET PO SCH (08:49)
[2020-11-02] MEDS: DOCUSATE SODIUM 250 MG CAPSULE PO SCH ×2 (08:49→17:00)
[2020-11-02] MEDS: LACTULOSE 10 G/15 ML UDC (PYXIS) PO SCH ×2 (08:49→20:42)
[2020-11-02] MEDS: PANTOPRAZOLE 40 MG TABLET.DR PO SCH (08:49)
[2020-11-02] MEDS: ENOXAPARIN SODIUM 30 MG/0.3 ML DISP.SYRIN SQ SCH ×2 (08:50→21:43)
[2020-11-02] MEDS: LISINOPRIL (20MG) 20 MG TABLET PO SCH (08:52)
[2020-11-02] MEDS: IV PREMIX D5 1/2NS + KCL 1,000 ML IV PRN ×2 (08:59→21:16)
[2020-11-02] MEDS: HYDROCODONE/APAP 5/325MG TABLET PO PRN (10:41)
[2020-11-02] MEDS ORDERED: POLYETHYLENE GLYCOL 3350 17 GM POWD.PACK PO PRN (12:30)
[2020-11-02] MEDS: HYDROCHLOROTHIAZIDE 25 MG TABLET PO SCH (15:43)
[2020-11-02 16:00] VITALS: BP 160/79
--- NOTE | 2020-11-02 16:40 | NUR ---
MS RN NOTES PCR AND RAPID COVID-19 TEST DONE AND WILL SEND SPECIMEN TO LAB WILL AWAIT FOR RESULTS.
--- NOTE | 2020-11-02 16:55 | NUR ---
MS RN NOTES PATIENT'S RAPID IS NEGATIVE, INFORMED HOSPITALIST KELLEY ARRIOLA, DNP AWAITING FOR PCR RESULTS, WILL CONTINUE TO MONITOR PATIENT.
[2020-11-02] MEDS: ATORVASTATIN 10 MG TABLET PO SCH (17:00)
--- NOTE | 2020-11-02 17:20 | NUR ---
MS RN NOTES SPOKE WITH DR. JORGENSEN, INFORMED THAT PATIENT HAS BEEN CONSTIPATED AND HAS NOT HAD A BOWEL MOVEMENT. ORDERED 1 GALLON OF GOLYTELY, SENNAKOT 2 TABS Q 12 HR, AND TO CHANGE LACTULOSE DOSE TO 45mL AND Q 8HRS. WILL CARRY OUT ORDERS AND CONTINUE TO MONITOR PATIENT.
--- NOTE | 2020-11-02 19:09 | NUR ---
MS RN NOTES PATIENT IN BED, AWAKE, ALERT AND ORIENTED X 4. WITH BREATHING EVEN AND UNLABORED ON ROOM AIR. SHOWS NO SIGNS OF ACUTE RESPIRATORY DISTRESS AT THIS TIME. MET ALL OF PATIENT'S NEEDS. PATIENT PRESENTING WITH NO PAIN AT THIS TIME. IV ON HYACINTH MIDLINE RUNNING D5 1/2 NS AT KCL 20MEQ AT 100ML/HR. SAFETY PRECAUTIONS IN PLACE WITH BED IN LOWEST POSITION, BED LOCKED, BED ALARM ON AND CALL LIGHT KEPT WITHIN REACH. WILL ENDORSE PLAN OF CARE TO UPCOMING RN.
[2020-11-02 20:00] VITALS: BP 156/68
[2020-11-02] MEDS: SENNOSIDES/DOCUSATE SODIUM 1 TAB TABLET PO SCH (20:42)
[2020-11-02] MEDS ORDERED: PEG 3350/NA SULF,BICARB,CL/KCL 4,000 ML BOTTLE PO ONE (21:00)
[2020-11-02] MEDS: TAMSULOSIN 0.4 MG CAP.SR.24H PO SCH (21:51)
[2020-11-03] MEDS: LACTULOSE 10 G/15 ML UDC (PYXIS) PO SCH (04:42)
--- NOTE | 2020-11-03 04:42 | NUR ---
MS RN NOTES PATIENT REFUSING MEDICATION TO AID WITH BM SUCH GOLYTELY AND LACTULOSE. HAS HAD 2 BM THAT FORMED AND LIQUID. WILL CONTINUE TO MONITOR.
[2020-11-03] MEDS: IV PREMIX D5 1/2NS + KCL 1,000 ML IV PRN (07:29)
--- NOTE | 2020-11-03 07:39 | NUR ---
MS RN OPEN NOTES PATIENT IS SLEEPING IN BED WITH NO SIGNS OF DISTRESS IN ROOM AIR. NO SIGNS OF PAIN AT THIS MOMENT. MIDLINE L UA INTACT RUNNING D 1/2 NS + 20 MEQ KCL AT 100 ML/HR. SAFETY MEASURES ARE APPLIED BED IS IN THE LOWEST POSITION, LOCKED, BEDSIDE RAILS UP X 2. CALL LIGHT WITHIN REACH, WILL CONTINUE TO MONITOR.
[2020-11-03 08:00] VITALS: BP 132/66
[2020-11-03] MEDS: CALCIUM CARBONATE (1250) 500 MG TABLET PO SCH (08:15)
[2020-11-03] MEDS: DOCUSATE SODIUM 250 MG CAPSULE PO SCH ×3 (08:15→17:36)
[2020-11-03] MEDS: MAGNESIUM OXIDE 400 MG TABLET PO SCH (08:15)
[2020-11-03] MEDS: PANTOPRAZOLE 40 MG TABLET.DR PO SCH (08:15)
[2020-11-03] MEDS: LEVOTHYROXINE SODIUM 175 MCG TABLET PO SCH (08:16)
[2020-11-03] MEDS: POLYETHYLENE GLYCOL 3350 17 GM POWD.PACK PO SCH ×2 (08:17→08:39)
[2020-11-03] MEDS: LISINOPRIL (20MG) 20 MG TABLET PO SCH (08:19)
[2020-11-03] MEDS: HYDROCHLOROTHIAZIDE 25 MG TABLET PO SCH (08:19)
[2020-11-03] MEDS: SENNOSIDES/DOCUSATE SODIUM 1 TAB TABLET PO SCH ×2 (08:36→21:32)
[2020-11-03 08:54] LABS: BASOPHILS # (AUTO) 0.1 /CMM (0.0-0.2); BASOPHILS % (AUTO) 0.6 % (0.0-2.0); EOSINOPHILS % (AUTO) 2.1 % (0.0-6.0); HEMATOCRIT 32 % (39-51); HEMOGLOBIN 10.8 g/dL (13.5-17.5); LYMPHOCYTES # (AUTO) 1.4 /CMM (0.8-4.8); LYMPHOCYTES % (AUTO) 16.2 % (20.0-44.0); MEAN CORPUSCULAR HGB CONC 34 g/dl (31.0-36.0); MEAN CORPUSCULAR VOLUME 91 fL (80-96); MONOCYTES # (AUTO) 0.7 /CMM (0.1-1.30); MONOCYTES % (AUTO) 7.9 % (2.0-12.0); NEUTROPHILS # (AUTO) 6.3 /CMM (1.8-8.9); NEUTROPHILS % (AUTO) 73.2 % (43.0-81.0); PLATELET COUNT (AUTO) 261 /CMM (150-450); RED BLOOD CELL COUNT(AUTO) 3.47 MIL/uL (4.5-6.0); WHITE BLOOD COUNT (AUTO) 8.7 K/uL (4.3-11.0)
[2020-11-03 09:08] LABS: CALCIUM, SERUM 8.1 mg/dL (8.5-10.1); CREATININE 0.8 mg/dL (0.6-1.3); POTASSIUM 3.8 mmol/L (3.5-5.1)
[2020-11-03] MEDS: ENOXAPARIN SODIUM 30 MG/0.3 ML DISP.SYRIN SQ SCH ×2 (11:09→21:32)
[2020-11-03] MEDS ORDERED: POLYETHYLENE GLYCOL 3350 17 GM POWD.PACK PO PRN (12:41)
[2020-11-03 16:00] VITALS: BP 134/70
[2020-11-03] MEDS ORDERED: MAG HYDROX/AL HYDROX/SIMETH 30 ML UDC PO PRN (17:00)
[2020-11-03] MEDS: ATORVASTATIN 10 MG TABLET PO SCH (17:37)
--- NOTE | 2020-11-03 19:45 | NUR ---
MS RN OPENING NOTES PATIENT AWAKE IN BED. A/OX4. ON RA; PATIENT DENIES SOB; BREATHING IS EVEN AND UNLABORED. NO C/O PAIN. MIDLINE PRESENT ON LEFT UPPER ARM, INTACT & PATENT, HEP LOCKED. SURGICAL DRESSING ON LEFT HIP DRY AND INTACT. CONTACT/DROPLET PRECAUTIONS IN PLACE FOR COVID 19. SAFETY MEASURES IN PLACE AND PATIENT'S NEEDS MET. BED LOCKED, HOB ELEVATED, SIDE RAILS X2, CALL LIGHT WITHIN REACH. WILL CONTINUE TO MONITOR.
--- NOTE | 2020-11-03 19:47 | NUR ---
MS RN CLOSED NOTES PATIENT IS A/O X 4 IN BED WITH NO SIGNS OF DISTRESS IN ROOM AIR. NO SIGNS OF PAIN AT THIS MOMENT. MIDLINE L UA INTACT SL. PATIENT KEPT CLEAN AND DRY. ALL NEEDS, CARE, TREATMENT,AND MEDICATIONS WERE ADMINISTERED ANTICIPATED PER ORDER. SAFETY MEASURES ARE APPLIED, BED IS IN LOW POSITION SIDE RAILS UP X 2. CALL LIGHT WITHIN REACH WILL ENDORSE TO THE BATCH MIXER OPERATOR NURSE.
[2020-11-03 20:00] VITALS: BP 134/58
[2020-11-03] MEDS: TAMSULOSIN 0.4 MG CAP.SR.24H PO SCH (21:32)
[2020-11-04 04:00] VITALS: BP 142/73
[2020-11-04] MEDS ORDERED: LACTULOSE 10 G/15 ML UDC (PYXIS) PO PRN (05:00)
[2020-11-04] MEDS: LEVOTHYROXINE SODIUM 175 MCG TABLET PO SCH (06:36)
[2020-11-04] MEDS: PANTOPRAZOLE 40 MG TABLET.DR PO SCH (06:36)
--- NOTE | 2020-11-04 07:08 | NUR ---
MS RN CLOSING NOTES PATIENT SLEEPING, AWAKENS TO NAME. A/OX4. ON RA; NO ACUTE RESPIRATORY DISTRESS; BREATHING IS EVEN AND UNLABORED. NO C/O PAIN. MIDLINE PRESENT ON LEFT UPPER ARM, INTACT & PATENT, HEP LOCKED. SURGICAL DRESSING ON LEFT HIP DRY AND INTACT. SAFETY MEASURES IN PLACE AND PATIENT'S NEEDS MET. BED LOCKED, HOB ELEVATED, SIDE RAILS X2, CALL LIGHT WITHIN REACH. WILL ENDORSE TO DAY SHIFT RN PLAN OF CARE.
--- NOTE | 2020-11-04 07:49 | NUR ---
MS RN OPENING NOTES RECEIVED PATIENT RESTING IN BED. A/OX4. ON RA, BREATHING EVEN AND UNLABORED, NO ACUTE RESPIRATORY DISTRESS NOTED, NO SOB, NO C/O PAIN OR DISCOMFORT AT THIS TIME. LT UPPER ARM MIDLINE PRESENT, PATENT AND INTACT, KEPT HEP LOCKED. SURGICAL DRESSING TO LEFT HIP KEPT DRY CLEAN. CONTACT/DROPLET PRECAUTIONS IN PLACE FOR COVID 19. ALL SAFETY MEASURES IN PLACE. BED IS AT LOW POSITION AND LOCKED, WITH HOB ELEVATED AND SIDE RAILS UPX2 AND CALL LIGHT WITHIN REACH. WILL CONTINUE TO MONITOR.
[2020-11-04 08:00] VITALS: BP 126/74
[2020-11-04 08:05] LABS: BASOPHILS % (AUTO) 0.4 % (0.0-2.0); EOSINOPHILS % (AUTO) 2.4 % (0.0-6.0); HEMATOCRIT 31 % (39-51); HEMOGLOBIN 10.8 g/dL (13.5-17.5); LYMPHOCYTES # (AUTO) 1.7 /CMM (0.8-4.8); LYMPHOCYTES % (AUTO) 19.2 % (20.0-44.0); MEAN CORPUSCULAR HGB CONC 34 g/dl (31.0-36.0); MEAN CORPUSCULAR VOLUME 91 fL (80-96); MONOCYTES # (AUTO) 0.9 /CMM (0.1-1.30); MONOCYTES % (AUTO) 9.8 % (2.0-12.0); NEUTROPHILS # (AUTO) 5.9 /CMM (1.8-8.9); NEUTROPHILS % (AUTO) 68.2 % (43.0-81.0); PLATELET COUNT (AUTO) 284 /CMM (150-450); RED BLOOD CELL COUNT(AUTO) 3.47 MIL/uL (4.5-6.0); WHITE BLOOD COUNT (AUTO) 8.7 K/uL (4.3-11.0)
[2020-11-04 08:33] LABS: CALCIUM, SERUM 8.4 mg/dL (8.5-10.1); CREATININE 0.8 mg/dL (0.6-1.3); POTASSIUM 3.7 mmol/L (3.5-5.1)
[2020-11-04] MEDS: SENNOSIDES/DOCUSATE SODIUM 1 TAB TABLET PO SCH ×2 (09:00→21:00)
[2020-11-04] MEDS: HYDROCHLOROTHIAZIDE 25 MG TABLET PO SCH (09:48)
[2020-11-04] MEDS: CALCIUM CARBONATE (1250) 500 MG TABLET PO SCH (09:48)
[2020-11-04] MEDS: MAGNESIUM OXIDE 400 MG TABLET PO SCH (09:48)
[2020-11-04] MEDS: DOCUSATE SODIUM 250 MG CAPSULE PO SCH ×2 (09:48→17:05)
[2020-11-04] MEDS: LISINOPRIL (20MG) 20 MG TABLET PO SCH (09:49)
[2020-11-04] MEDS: ENOXAPARIN SODIUM 30 MG/0.3 ML DISP.SYRIN SQ SCH ×2 (09:53→21:24)
[2020-11-04] MEDS: HYDROCODONE/APAP 5/325MG TABLET PO PRN (09:55)
--- NOTE | 2020-11-04 11:41 | NUR ---
RN NOTES CALLED DR. JUAREZ'S OFFICE RE: PATIENT DUE TO DC PLANNING AND PATIENT WANTS TO SEE DR. JUAREZ. LEFT MESSAGE WITH SALES STOCK ASSOCIATE AWAITING FOR RESPONSE.
[2020-11-04] MEDS: ATORVASTATIN 10 MG TABLET PO SCH (17:06)
--- NOTE | 2020-11-04 18:18 | NUR ---
MS RN OPENING NOTES PATIENT RESTING IN BED. A/OX4. ON RA, BREATHING EVEN AND UNLABORED, NO ACUTE RESPIRATORY DISTRESS NOTED, NO SOB, NO C/O PAIN OR DISCOMFORT AT THIS TIME. LT UPPER ARM MIDLINE PRESENT, PATENT AND INTACT, KEPT HEP LOCKED. SURGICAL DRESSING TO LEFT HIP KEPT DRY CLEAN. CONTACT/DROPLET PRECAUTIONS IN PLACE FOR COVID 19. ALL SAFETY MEASURES IN PLACE. BED IS AT LOW POSITION AND LOCKED, WITH HOB ELEVATED AND SIDE RAILS UPX2 AND CALL LIGHT WITHIN WILL ENDORSE TO ONCOMING SHIFT.
--- NOTE | 2020-11-04 19:41 | NUR ---
INFORMATICS MANAGER: CONTINUITY OF CARE Patient in bed, awake. On room air, tolerating well. Left hip/Lateral thigh surgical incision dressing clean and dry, denies pain. Fall precaution maintained. Covid 19 PCR resulted negative 11/04/20 per report and patient to be dc home tomorrow.
[2020-11-04 20:00] VITALS: BP 149/64
[2020-11-04 20:40] VITALS: BP 146/64
[2020-11-04] MEDS: TAMSULOSIN 0.4 MG CAP.SR.24H PO SCH (21:23)
--- NOTE | 2020-11-04 21:30 | NUR ---
MS RN: ANTICOAGULANT H/H 10.07/13 PLT 284 no bleeding. Lovenox injection given co-signed by SERGIO Nair.
--- NOTE | 2020-11-05 06:12 | NUR ---
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 Left hip incision covered with dry dressing, no bleeding, no c/o pain. Slept most of the night. HYACINTH midline intact. Covid 19 resulted negative 11/04/20. Patient to be dc home with HH/PT today. Will endorse to oncoming RN.
--- NOTE | 2020-11-05 07:30 | NUR ---
RN MS NOTES PT IN BED, AWAKE, ALERT AND ORIENTED, NO COMPLAINT OF PAIN AT THIS TIME, BREATHING PATTERN NORMAL, CALL LIGHT WITHIN REACH, NO BLEEDING NOTED TO SURGICAL SITE AT LEFT HIP, NEEDS ATTENDED.
[2020-11-05 08:00] VITALS: BP 128/59
[2020-11-05] MEDS: ENOXAPARIN SODIUM 30 MG/0.3 ML DISP.SYRIN SQ SCH (10:56)
[2020-11-05] MEDS: SENNOSIDES/DOCUSATE SODIUM 1 TAB TABLET PO SCH (10:57)
[2020-11-05] MEDS: HYDROCHLOROTHIAZIDE 25 MG TABLET PO SCH (10:57)
[2020-11-05] MEDS: DOCUSATE SODIUM 250 MG CAPSULE PO SCH ×2 (10:57→16:37)
[2020-11-05] MEDS: LISINOPRIL (20MG) 20 MG TABLET PO SCH (10:58)
[2020-11-05] MEDS: LEVOTHYROXINE SODIUM 175 MCG TABLET PO SCH (10:58)
[2020-11-05] MEDS: CALCIUM CARBONATE (1250) 500 MG TABLET PO SCH (10:59)
[2020-11-05] MEDS: PANTOPRAZOLE 40 MG TABLET.DR PO SCH (10:59)
[2020-11-05] MEDS: MAGNESIUM OXIDE 400 MG TABLET PO SCH (11:00)
[2020-11-05] MEDS ORDERED: HYDR-4384 PO (11:41)
[2020-11-05] MEDS ORDERED: DOCU-141 PO (11:41)
[2020-11-05] MEDS ORDERED: ASPI-992 PO (11:41)
[2020-11-05] MEDS ORDERED: POLY17PO4 PO (11:41)
[2020-11-05] MEDS ORDERED: ENOX40DI SQ (11:47)
[2020-11-05] MEDS ORDERED: ASPI-1169 PO (11:49)
[2020-11-05 12:00] VITALS: BP 132/71
[2020-11-05] MEDS: HYDROCODONE/APAP 5/325MG TABLET PO PRN (13:44)
[2020-11-05 16:00] VITALS: BP 120/70
--- NOTE | 2020-11-05 17:29 | NUR ---
RN MS NOTES PT IN BED, AWAKE, ALERT AND ORIENTED, NO COMPLAINT OF PAIN AT THIS TIME, BREATHING PATTERN NORMAL, CALL LIGHT WITHIN REACH, SEEN BY DR. ARRIOLA, DISCHARGE ORDER GIVEN, DISCHARGE AND MEDICATION INSTRUCTIONS PROVIDED TO PT, VERBALIZED UNDERSTANDING, NEW PRESCRIPTIONS SENT ELECTRONICALLY TO PT'S PREFERRED PHARMACY, BELONGINGS ACCOUNTED FOR, NO BLEEDING NOTED AT SURGICAL SITE AT LEFT HIP, ALSO SEEN TODAY BY PHYSICAL THERAPIST, TOLERATED ACTIVITY WELL, PICKED UP BY 2 AMBULANCE PERSONNEL VIA [facility], LEFT IN STABLE CONDITION.
== END 2020-11-05 17:25 | disposition home health service (06) | DRG 482 ==
LOC: ER 15:05 → MEDSG2 10-26 00:05
PROVIDERS: ADMIT Internal Medicine; ATTEND Nurse Practitioner Acute Care
PROC: 0QS706Z Reposition Left Upper Femur with Intramedullary Internal Fixation Device, Open Approach (ICD-10-PCS; principal; 2020-10-28)
PROC: 05HY33Z Insertion of Infusion Device into Upper Vein, Percutaneous Approach (ICD-10-PCS; 2020-10-31)
DX: S72.142A Displaced intertrochanteric fracture of left femur, initial encounter for closed fracture (principal); E86.0 Dehydration; E78.5 Hyperlipidemia, unspecified; J45.909 Unspecified asthma, uncomplicated; Z85.850 Personal history of malignant neoplasm of thyroid; Z86.73 Personal history of transient ischemic attack (TIA), and cerebral infarction without residual deficits; K21.9 Gastro-esophageal reflux disease without esophagitis; W10.9XXA Fall (on) (from) unspecified stairs and steps, initial encounter; D69.6 Thrombocytopenia, unspecified; Y92.9 Unspecified place or not applicable; Z88.5 Allergy status to narcotic agent; E89.0 Postprocedural hypothyroidism; Z90.49 Acquired absence of other specified parts of digestive tract; Z87.19 Personal history of other diseases of the digestive system; I10 Essential (primary) hypertension; K59.00 Constipation, unspecified; M47.816 Spondylosis without myelopathy or radiculopathy, lumbar region; D64.9 Anemia, unspecified
CPT/HCPCS: 36415; 71045-TC; 73020; 73502; 73552; 73700-TC; 80048-TC; 80053-TC; 81001; 83735-TC; 84100-TC; 85025-TC; 85378-TC; 85610-TC; 85730-TC; 86850-TC; 87081-TC; 97110-TC; 97112-TC; 97116-TC; 97530-TC; A6209; A6253; A6403; C1713; C9803; G0378; J0330; J0690; J1170; J1650; J1885; J2405; J2704; J3010; J3490; J7030; J7040; J7060; U0003